=== PATIENT | male | born 1975 | race Caucasian/White ===

== ENCOUNTER 2022-01-09 15:00 | Emergency (ER) | payer OTHER ==
[~2022-01-09] VITALS: Ht 177.8 cm; Wt 88.5 kg
[2022-01-09] MEDS ORDERED: AMLODIPINE BESYL5 MG PO (15:13)
[2022-01-09] MEDS ORDERED: CYCLOBENZAPRINE10 MG PO (15:13)
[2022-01-09] MEDS ORDERED: ATORVASTATIN CA20 MG PO (15:13)
[2022-01-09] MEDS ORDERED: LISINOPRIL-HCT1 EAC1 PO (15:13)
[2022-01-09] MEDS ORDERED: TRAZODONE HCL50 MG PO (15:14)
[2022-01-09] MEDS ORDERED: SUMATRIPTAN SU100 MG PO (15:14)
[2022-01-09] MEDS ORDERED: COLCRYS0.6 MG PO (17:04)
[2022-01-09] MEDS ORDERED: HYDROCODON-ACE1 EA11 PO (17:04)
== END 2022-01-09 17:29 | disposition home or self-care (01) ==
LOC: ED 15:00
DX: M10.9 Gout, unspecified (principal); I10 Essential (primary) hypertension; Z79.899 Other long term (current) drug therapy
CPT/HCPCS: 73630; 99283-25; A9270

== ENCOUNTER 2025-01-20 11:16 | Emergency (ER) | payer OTHER ==
[~2025-01-20] VITALS: Ht 177.8 cm; Wt 105.1 kg
[~2025-01-20 11:16] MED LIST: AMLODIPINE BESYL5 MG PO; ATORVASTATIN CA20 MG PO; COLCRYS0.6 MG PO; CYCLOBENZAPRINE10 MG PO; HYDROCODON-ACE1 EA11 PO; LISINOPRIL-HCT1 EAC1 PO; SUMATRIPTAN SU100 MG PO; TRAZODONE HCL50 MG PO
[2025-01-20] MEDS ORDERED: ondansetron HCL 4 MG/2 ML VIAL IV ONE ×2 (12:15→13:00)
[2025-01-20 12:57] LABS: BILIRUBIN, URINE NEGATIVE (negative); BLOOD/HGB, URINE NEGATIVE (Negative); KETONE, URINE TRACE (Negative); LEUK ESTERASE, URINE NEGATIVE (negative); NITRITE, URINE NEGATIVE (negative)
[2025-01-20 13:00] LABS: BASOPHILS 0.7 % (0.2-1.2); EOSINOPHILS 1.1 % (0.8-7.0); HEMATOCRIT 46.8 % (40.1-51.0); HEMOGLOBIN 15.5 g/dL (13.7-17.5); MCH 31.4 PG (25.7-32.2); MCHC 33.1 g/dL (32.3-36.5); MCV 94.7 fL (79.0-92.2); MONOCYTES 10.1 % (5.3-12.2); NEUTROPHILS 73.7 % (34.0-67.9); PLATELET COUNT 385 K/uL (163-337); RBC 4.94 M/uL (4.63-6.08)
[2025-01-20] MEDS ORDERED: KETOROLAC TROMETHAMINE 15 MG/ML VIAL IV ONE (13:00)
[2025-01-20 13:18] LABS: ALBUMIN 3.8 g/dL (3.4-5.0); ALBUMIN/GLOBULIN RATIO 0.86 (1.1-2.4); BILIRUBIN, TOTAL 0.5 mg/dL (0.2-1.0); BUN/CREATININE RATIO 15.38 (6.0-28.6); CALCIUM 9.3 mg/dL (8.5-10.1); CREATININE, SERUM 0.91 mg/dL (0.70-1.30); PROTEIN, TOTAL 8.2 g/dL (6.4-8.2)
[2025-01-20 14:29] VITALS: BP 159/96
== END 2025-01-20 14:31 | disposition home or self-care (01) ==
LOC: ED 11:16
PROVIDERS: Emergency Medicine
DX: K42.9 Umbilical hernia without obstruction or gangrene (principal); I10 Essential (primary) hypertension
CPT/HCPCS: 36415; 74177; 80053; 81003; 83690; 85025; 96374; 99284-25; J1885; Q9967

== ENCOUNTER 2025-07-26 06:47 | Day surgery (SDC) | payer OTHER ==
[~2025-07-26] VITALS: Ht 177.8 cm; Wt 91.0 kg
[~2025-07-26 06:47] MED LIST changes: +COZAAR50 MG PO; +LACTATED RINGER'S 1,000 ML IV SCH
[2025-07-26] MEDS ORDERED: IBLOOD GLUCOSE TEST STRIP 1 EA TEST VI PRN (07:00)
[2025-07-26] MEDS ORDERED: LIDOCAINE HCL 1% 5 ML SDV INJ ONE (07:00)
[2025-07-26 07:04] VITALS: BP 157/101
[2025-07-26] MEDS ORDERED: LIDOCAINE HCL 2% 5 ML SDV ONE (07:26)
[2025-07-26 08:38] VITALS: BP 157/117
--- NOTE | 2025-07-26 08:45 | NUR ---
07/26/25 0845 Danielle,Ladi 0815 PT ARRIVED TO PACU ON 2L VIA NC, PT RESTING AND RPEORTS "THAT WAS THE BEST NAP." PT DENIES CONCERNS. PT FALLS ASLEEP OFF AND ON. 0829 O2 REMOVED AND HOB INCREASED, PT ROLLED TO HIS BACK AND DENIES CONCERNS, PT SIPPING JUICE PER REQUEST. 0844 PT SITTING ON EDGE OF BED AND DC INSTRUCTIONS GIVEN.
--- NOTE | 2025-08-01 11:49 | PATH ---
[facility] [address] [place], [place] [address] Signed SPECIMEN(S): A SIGMOID POLYP AT 30 CM SPECIMEN SOURCE: A. SIGMOID POLYP AT 30 CM CLINICAL HISTORY: Screening FINAL PATHOLOGIC DIAGNOSIS: Sigmoid polyp at 30 cm: - Tubular adenoma BB MICROSCOPIC EXAMINATION: Histologic sections of all submitted blocks are examined by light microscopy. These findings, together with the gross examination, support the pathologic diagnosis. GROSS DESCRIPTION: The specimen, labeled and designated "Glenn, sigmoid polyp at 30 cm," is received in formalin and consists of two henao soft tissue fragments, ranging from 0.3-0.4 cm. Entirely submitted in (A1). VB (under the direct supervision of a pathologist) The Gross Description was prepared using a voice recognition system. The report was reviewed for accuracy; however, sound-alike word errors, addition and/or deletions may occur. If there is any question about this report, please contact Client Services. ADDITIONAL NOTES: Immunohistochemical and/or in situ hybridization studies if performed in this case included appropriate positive controls that reacted as expected. This test was developed and its performance characteristics determined by [facility]. It has not been cleared or approved by the U.S. Food and Drug Administration. The FDA has determined that such clearance or approval is not necessary. This test is used for clinical purposes. It should not be regarded as investigational or for research. [facility] is certified under the Clinical Laboratory Improvement Amendments of 1988 (CLIA) as qualified to perform high complexity clinical laboratory testing. PATIENT NAME: DONALD DAVIS PATHOLOGY DATE OF : 71 REPORT #: [id number] PHYSICIAN: JOSE L WEST PCP: NERI NINO PAC REPORT IS CONFIDENTIAL AND NOT TO BE RELEASED WITHOUT AUTHORIZATION [facility] [address] [place], [place] [address] Signed PERFORMING LABORATORY: Technical component was performed by [facility], [address] [place] [address] (CLIA# [id number]). Professional interpretation was performed by [facility] [place] [address] (CLIA#: [id number]). Diagnostician: Keith Lopez MD Pathologist Electronically Signed 08/01/2025 Copies: ~ PATIENT NAME: DONALD DAVIS PATHOLOGY DATE OF : 71 REPORT #: [id number] PHYSICIAN: JOSE L WEST PCP: NERI NINO PAC REPORT IS CONFIDENTIAL AND NOT TO BE RELEASED WITHOUT AUTHORIZATION
== END 2025-07-26 08:50 | disposition home or self-care (01) ==
LOC: DS 06:47
PROVIDERS: ATTEND Surgery
PROC: 0DBN8ZX Excision of Sigmoid Colon, Via Natural or Artificial Opening Endoscopic, Diagnostic (ICD-10-PCS; principal; 2025-07-26 07:55)
DX: Z12.11 Encounter for screening for malignant neoplasm of colon (principal); D12.5 Benign neoplasm of sigmoid colon; K57.30 Diverticulosis of large intestine without perforation or abscess without bleeding; K42.9 Umbilical hernia without obstruction or gangrene; I10 Essential (primary) hypertension; G47.33 Obstructive sleep apnea (adult) (pediatric); H40.9 Unspecified glaucoma; Z79.899 Other long term (current) drug therapy
CPT/HCPCS: 00811; 88305; J2003; J2704; J7121